=== PATIENT | female | born 1955 | race Caucasian/White ===

== ENCOUNTER 2019-11-02 06:16 | Inpatient (IN) ==
--- NOTE | 2019-10-18 13:43 | PAT Medication Instructions ---
Medication Instructions Date of Service October 18, 2019 Home Medications aspirin 325 mg PO QAM atorvastatin 10 mg PO QAM gabapentin 900 mg PO TID levothyroxine 75 mcg PO QAM metoprolol succinate 12.5 mg PO HS omeprazole 20 mg PO DAILY PRN paroxetine HCl [Paxil] 20 mg PO QAM ASK your prescriber and surgeon aspirin 325 mg PO QAM Take morning of surgery With a small sip of water, OTHERWISE NOTHING TO EAT OR DRINK AFTER MIDNIGHT: atorvastatin 10 mg PO QAM gabapentin 900 mg PO TID levothyroxine 75 mcg PO QAM omeprazole 20 mg PO DAILY PRN (if needed) paroxetine HCl [Paxil] 20 mg PO QAM Take evening before surgery gabapentin 900 mg PO TID metoprolol succinate 12.5 mg PO HS omeprazole 20 mg PO DAILY PRN (if needed) Other Notes If you have any questions please call us at [phone] or [phone] or [phone] or [phone]
--- NOTE | 2019-10-18 14:00 | Anesthesiology Consultation ---
Date of Service October 18, 2019 Assessment & Plan (1) Encounter for pre-operative examination: Chart Review Chart Review: Acceptable Risk for Surgery and Patient seen in Pre Admission Testing Teaching & Discussion Instructed NPO after midnight before surgery, except medications with 15 cc of water. Medication instructions provided according to the PAT guidelines. History Surgery Operation Date: 11/02/19 09:55 Proposed Procedures p C4-C5 Anterior Cervical Discectomy Fusion, C4-C7 Fusion, C6 Corpectomy, Spinal Cord Monitoring - Darrell Irvin DO Height/Weight Height: 4 ft 10 in Weight: 81.6 kg Allergies Allergy/AdvReac Type Severity Reaction Status Date / Time azithromycin Allergy Intermediate Hives Verified 10/18/19 13:33 diphenhydramine Allergy Intermediate Hives Verified 10/18/19 13:33 [From Benadryl] oxycodone AdvReac Mild N/V Verified 10/18/19 13:37 Medications Home Medications Medication Instructions Recorded Confirmed Last Taken aspirin 325 mg PO QAM 10/18/19 10/18/19 Unknown atorvastatin 10 mg PO QAM 10/18/19 10/18/19 Unknown gabapentin 900 mg PO TID 10/18/19 10/18/19 Unknown levothyroxine 75 mcg PO QAM 10/18/19 10/18/19 Unknown metoprolol succinate 12.5 mg PO HS 10/18/19 10/18/19 Unknown omeprazole 20 mg PO DAILY PRN 10/18/19 10/18/19 Unknown paroxetine HCl [Paxil] 20 mg PO QAM 10/18/19 10/18/19 Unknown Past Medical History Medical History Anemia Anxiety and depression Chronic kidney disease STAGE 3 Chronic obstructive pulmonary disease "MILD", uses rescue inhaler once or twice per year if has bronchitis GERD (gastroesophageal reflux disease) Hyperlipidemia Hypertension Hypothyroidism Nerve damage RT GROIN AREA Transient ischemic attack (TIA) 2008 (6 TOTAL EVENTS) SLURRED SPEECH AND LIGHT SENSITIVITY (NO CURRENT DEFECITS). NOW ON DAILY ASA 325. Exercise / Class Metabolic Activity II 4-5 Yardwork/Stairs/Walk up hill Past Family History Family History Other No significant family history Past Surgical History Surgical History History of cholecystectomy History of colonoscopy History of ERCP History of tonsillectomy History of tooth extraction Past Anesthesia History No Hx of Anesthesia Complications and No Family Hx of Anesthesia Complications History of PONV No Hx of PONV and No Hx of Motion Sickness STOP BANG Total 5 Social History Smoking Status: Never smoker Do You Dip or Chew Tobacco: No Hx Alcohol Use: No Hx Substance Use: No substance use type: does not use Review of Systems Pt denies any recent chest pain, shortness of breath, palpitations, cough, fever. +URI mid 09/2019, treated with steroid and ABX, now resolved. Physical Exam Vital Signs Last Vital Signs Temp 36.9 C 10/18/19 13:41 Pulse 68 10/18/19 13:41 Resp 16 10/18/19 13:41 BP 125/81 10/18/19 13:41 Pulse Ox 97 10/18/19 13:41 ENMT Mouth: + dentures (upper full denture); no chipped teeth and no loose teeth Thyromental Distance: < 3.5 Finger Breadths (3) Mallampati Class: II Neck + short neck and + limited neck extension (very limited) Respiratory normal respiratory effort Auscultation: lungs clear to auscultation bilaterally Cardiovascular Rate/Rhythm: regular rate and regular rhythm Heart Sounds: no murmur Vessels: no carotid bruit Extremities: no edema Testing Laboratory Results 10/18/19 14:06 PT 9.7 Seconds (9.0-12.0) 10/18/19 14:06 INR 0.9 (0.9-1.1) 10/18/19 14:06 APTT 24.5 Seconds (21.0-31.0) 10/18/19 14:06 Urine Color Dark Yellow 10/18/19 14:06 Urine Appearance Clear (Clear) 10/18/19 14:06 Urine pH 5.5 (4.5-7.5) 10/18/19 14:06 Ur Specific [place] 1.024 (1.000-1.030) 10/18/19 14:06 Urine Protein Negative (Negative) 10/18/19 14:06 Urine Glucose (UA) Negative (Negative) 10/18/19 14:06 Urine Ketones Negative (Negative) 10/18/19 14:06 Urine Nitrite Negative (Negative) 10/18/19 14:06 Ur Leukocyte Esterase 2+ (Negative) H 10/18/19 14:06 Urine WBC (Auto) >30 /hpf (0-5) H 10/18/19 14:06 Urine RBC (Auto) 0-4 /hpf (0-4) 10/18/19 14:06 U Hyaline Cast (Auto) 1-5 /lpf (0-5) 10/18/19 14:06 U Epithel Cells (Auto) >30 /lpf (0-5) H 10/18/19 14:06 Urine Bacteria (Auto) 1+ (Negative) H 10/18/19 14:06 Blood Type A Positive 10/18/19 14:06 Antibody Screen NEGATIVE 10/18/19 14:06 09/15/19 SODIUM: 140 POTASSIUM: 4.3 CHLORIDE: 107 CO2: 22 BUN: 8 CREATININE: 0.7 GLUCOSE: 91 *surgeon's office notified re: + UA (culture pending) Electrocardiogram Date: 09/12/19 Findings: + NSR @ (71) Possible left atrial enlargement. Chest X-Ray Date: 09/03/19 Findings: + NAD Echocardiogram Date: 09/27/16 EF: 63% Normal cardiac chamber sizes. LV systolic function is normal. RV systolic function is normal. Mild aortic valve sclerosis is present. The mitral and tricuspid valve anatomy are normal. The estimated PASP is 23 mmHg. No pericardial effusion is noted.
[2019-10-18 16:05] LABS: Basophils # (auto) 0.02 K/uL (0-0.2); Basophils % (auto) 0.3 %; Eosinophils # (auto) 0.18 K/uL (0-0.5); Eosinophils % (auto) 3.1 %; Hematocrit (blood only) 40.8 % (37-47); Hemoglobin 12.7 g/dL (12.0-16.0); Immature Granulocytes # (auto) 0.03 K/uL (0.00-0.02); Immature Granulocytes % (auto) 0.5 %; Lymphocytes # (auto) 1.72 K/uL (1.2-3.4); Lymphocytes % (auto) 29.4 %; Mean Corpuscular Hemoglobin 30.3 pg (25-34); Mean Corpuscular Hgb Conc 31.1 g/dL (32-36); Mean Corpuscular Volume 97.4 fL (80-100); Mean Platelet Volume 11.2 fL (7.4-10.4); Monocytes # (auto) 0.41 K/uL (0.11-0.59); Neutrophils % (auto) 59.7 %; Platelet Count 196 K/uL (130-400); RDW Coefficient of Variation 13.3 % (11.5-14.5); RDW Standard Deviation 47.1 fL (36.4-46.3); Red Blood Count 4.19 M/uL (4.2-5.4); White Blood Count 5.86 K/uL (4.8-10.8)
[2019-10-18 16:19] LABS: INR 0.9 (0.9-1.1); Partial Thromboplastin Ratio 0.9; Partial Thromboplastin Time 24.5 Seconds (21.0-31.0); Prothrombin Time 9.7 Seconds (9.0-12.0)
[2019-10-18 16:23] LABS: Appearance Urine Clear (Clear); Bacteria Urine Automated 1+ (Negative); Bilirubin Urine Negative (Negative); Blood Urine Negative (Negative); Color Urine Dark Yellow; Epithelial Cell Urine Auto >30 /lpf (0-5); Glucose Urine UA Negative (Negative); Ketones Urine Negative (Negative); Leukocyte Esterase Urine 2+ (Negative); Nitrite Urine Negative (Negative); Protein Urine Negative (Negative); RBC Urine Automated 0-4 /hpf (0-4); Specific Gravity Urine 1.024 (1.000-1.030); Urobilinogen Urine Negative (Negative); WBC Urine Automated >30 /hpf (0-5); pH Urine 5.5 (4.5-7.5)
[~2019-11-02 06:16] MED LIST: ACETAMINOPHEN 500 MG TAB PO SCH; CEFAZOLIN 2000MG 2,000 MG/15 ML SYR IV SCH; CeleBREX 200 MG CAP PO SCH; GABAPENTIN 600 MG DOSE PO SCH; LR 15ML/HR IV SCH
[2019-11-02] MEDS ORDERED: HYDROmorphone INJ 2 MG/ML SYR/VIAL ONE (07:03)
[2019-11-02] MEDS ORDERED: MIDAZOLAM HCL 1 MG/ML 2ML VIAL ONE (07:03)
[2019-11-02] MEDS ORDERED: fentaNYL citrate 100 MCG/2 ML VIAL ONE ×3 (07:03→08:58)
[2019-11-02] MEDS ORDERED: BACITRACIN INJ 50,000 UNIT VIAL ONE (07:04)
[2019-11-02] MEDS ORDERED: PROMETHAZINE HCL 12.5 MG in SODIUM CHLORIDE 0.9% 50 ML IV PRN ×2 (07:30→11:55)
[2019-11-02] MEDS ORDERED: fentaNYL citrate 100 MCG/2 ML VIAL IV PRN (07:30)
[2019-11-02] MEDS ORDERED: METOCLOPRAMIDE HCL INJ 5 MG/ML 2 ML VIAL IV PRN ×2 (07:30→11:55)
[2019-11-02] MEDS ORDERED: HYDROmorphone INJ 2 MG/ML SYR/VIAL IV PRN (07:30)
[2019-11-02] MEDS ORDERED: ONDANSETRON INJ 2 MG/ML 2 ML VIAL IV PRN ×2 (07:30→11:55)
[2019-11-02] MEDS ORDERED: ATROPINE SULFATE 0.1 MG/ML 10ML SYR IV PRN (07:30)
[2019-11-02] MEDS ORDERED: ePHEDrine sulfate 50 MG/ML AMP IV PRN (07:30)
--- NOTE | 2019-11-02 07:31 | History & Physical Bridge Note ---
Date of Service November 02, 2019 History & Physical Bridge Note I have examined the patient, reviewed the History & Physical and in the interval since the performance of the History & Physical I have noted the following changes of clinical significance: no changes noted
--- NOTE | 2019-11-02 07:32 | History & Physical Report ---
Date of Service November 02, 2019 Assessment & Plan (1) Myelopathy concurrent with and due to spinal stenosis of cervical region: Anterior cervical discectomy and fusion C4-5 fusion C4-C7 corpectomy C6 Present on Admission?: Yes History of Present Illness Chief Complaint: Neck and arm pain Primary Care Provider: Jessica Laughlin This is a 64-year-old female with chronic persistent neck and arm symptoms. After failing extensive course of nonoperative care is here for surgical intervention. Allergies Allergy/AdvReac Type Severity Reaction Status Date / Time azithromycin Allergy Intermediate Hives Verified 11/02/19 06:37 diphenhydramine Allergy Intermediate Hives Verified 11/02/19 06:37 [From Benadryl] oxycodone AdvReac Mild N/V Verified 11/02/19 06:37 propoxyphene AdvReac Mild Nausea Verified 11/02/19 06:38 Home Medications Home Medications Medication Instructions Recorded Confirmed Type aspirin 325 mg PO QAM 10/18/19 11/02/19 History atorvastatin 10 mg PO QAM 10/18/19 11/02/19 History gabapentin 900 mg PO TID 10/18/19 11/02/19 History levothyroxine 75 mcg PO QAM 10/18/19 11/02/19 History metoprolol succinate 12.5 mg PO HS 10/18/19 11/02/19 History omeprazole 20 mg PO DAILY PRN 10/18/19 11/02/19 History paroxetine HCl [Paxil] 20 mg PO QAM 10/18/19 11/02/19 History Past Med/Surg History Medical History Anemia Anxiety and depression Chronic kidney disease STAGE 3 Chronic obstructive pulmonary disease "MILD", uses rescue inhaler once or twice per year if has bronchitis GERD (gastroesophageal reflux disease) Hyperlipidemia Hypertension Hypothyroidism Nerve damage RT GROIN AREA Transient ischemic attack (TIA) 2008 (6 TOTAL EVENTS) SLURRED SPEECH AND LIGHT SENSITIVITY (NO CURRENT DEFECITS). NOW ON DAILY ASA 325. Surgical History History of cholecystectomy History of colonoscopy History of ERCP History of tonsillectomy History of tooth extraction Family History Other No significant family history Social History Preferred Language: Beninese Communication Ability: Effective Obstetrics Nurse Required: No Beliefs That Will Affect Care: None Current Living Situation: Family Current Living Situation Comment: DAUGHTER AND FAMILY LIVE WITH PATIENT Feels Safe at Home: Yes Safety Concerns: Feels Safe At This Time Smoking Status: Never smoker Do You Dip or Chew Tobacco: No ; Second Hand Exposure: Yes ; Tobacco Cessation Education Requested by Patient: No Hx Alcohol Use: No Hx Substance Use: No Physical Exam Physical Exam: Patient alert and oriented neurologically intact Results & Data Vital Signs (Past 12 Hours) Vital Signs Temp Pulse Resp BP Pulse Ox 11/02/19 06:41 36.8 C 66 18 133/77 97
[2019-11-02] MEDS ORDERED: FLOSEAL HEMOSTATIC MATRIX 10ML TOP ONE (08:39)
[2019-11-02] MEDS ORDERED: ACETAMINOPHEN 1000 MG/100 ML IV IV ONE (08:42)
[2019-11-02] MEDS ORDERED: GLYCOPYRROLATE 0.2 MG/ML VIAL ONE (09:03)
[2019-11-02] MEDS ORDERED: DEXAMETHASONE SOD INJ 4 MG/ML VIAL ONE (09:03)
[2019-11-02] MEDS ORDERED: PHENYLEPHRINE 100MCG/ML 5ML SYR ONE (09:03)
[2019-11-02] MEDS ORDERED: NEOSTIGMINE METHYLSULFATE 1 MG/ML 10ML VIAL ONE (09:03)
[2019-11-02] MEDS ORDERED: PROPOFOL IV EMULSION 10 MG/ML 20 ML VIAL IV ONE (09:03)
[2019-11-02] MEDS ORDERED: ROCURONIUM BROMIDE 10 MG/ML 5 ML VIAL ONE (09:03)
[2019-11-02] MEDS ORDERED: ONDANSETRON INJ 2 MG/ML 2 ML VIAL ONE (09:03)
[2019-11-02] MEDS ORDERED: LIDOCAINE HCL 2% 2 ML VIAL/AMP(20MG/ML) INFIL ONE (09:03)
[2019-11-02] MEDS ORDERED: ePHEDrine sulfate 50 MG/ML SYR ONE (09:03)
--- NOTE | 2019-11-02 09:54 | Operative Report ---
Post Operative Report Pre & Post Diagnosis Operation Date: 11/02/19 07:45 Pre-Op Diagnosis: Cervical spinal stenosis with myeloradiculopathy Post-Op Diagnosis: Same I identified the patient and participated in the time-out.: Yes Procedure Operation Date: 11/02/19 07:45 Actual Procedures #1 anterior cervical corpectomy C6 with bilateral foraminotomies. #2 anterior cervical arthrodesis with bilateral foraminotomies C4-5 per #3 cervical arthrodesis C4-C5 and C5-C7. #4 placement of 6 mm peek at C4-5 and 21 mm peek cage at C5 to see 7 both filled with locally harvested morselized autograft and DBM. #5 application of gonzalez plate and screws from C5-C7. Surgeon Darrell Irvin, DO Bottom Presser Julian Roberts Estimated Blood Loss 25 Findings See Below Patient is forefoot 10 inches tall weighing over 80 kg with a BMI in excess of 37. The patient's body habitus did create increased technical difficulty adding at least 40% increase in operative time. Specimens None Indications This is a 64-year-old female presents with above-mentioned diagnosis after failing extensive course of nonoperative care is here for surgical intervention. Description of Procedure Patient was met with identified informed consent obtained. Patient was then taken to the operative suite underwent ablation placed in a supine position the Iraj table head Cool head of operation and logistics. All bony prominences well-padded eyes inspected to ensure no external pressure was prompt at this point the anterior cervical spine was prepped and draped in a sterile fashion. The assistance of fluoroscopy identified the see 6 vertebral body and a transverse incision was placed along the right anterior aspect of the cervical spine. Sharp dissection with the assistance of bipolar electrocautery was performed down to and exposing the anterior cervical spine from C4-C7. Self-retaining retractors placed. I then performed a complete discectomy of C5-6 out to the uncovertebral joints bilaterally followed by C6-7. [place] distracting pins were then placed in C5 and C7 to distract across the C6 vertebral body. A complete corpectomy was then performed including removal of all posterior annular fibers longitudinally bilateral foraminotomies performed. Endplates were then burred to subcortical bleeding bone and a 21 mm peek cage filled with locally harvested morselized autograft and DBM tapped in position. Distracting apparatus was removed and I proceeded to C4-5. Again complete discectomy performed out to the uncovertebral joints bilaterally. Bilateral foraminotomies performed. Endplates were then burred to subcortical bleeding bone and a 6 mm peek cage filled with locally harvested morselized autograft and DBM tapped in position. Distraction apparatus was removed all anterior osteophytes burred to a smooth cortical surface and a gonzalez plate and screws applied with the assistance of fluoroscopy. The incision was then copiously irrigated explored to ensure no damage to surrounding structures remaining bleeding. 10 round NEWTON drain inserted. Incision was then closed with 2 Vicryl in a fashion of 4 Monocryl for final closure. Steri-Strip sterile dressing placed. Patient will continue to PACU stable disc. Please note Julian Roberts was present at the entire procedure involved the patient positioning complex portions of the surgery and final skin closure. Lastly spinal cord monitoring was utilized that the procedure no changes noted. I attest to the content of the Intraoperative Record and any orders documented therein. Any exceptions are noted below.
--- NOTE | 2019-11-02 10:34 | Fluoroscopy Report ---
FL cervical 2-3V CLINICAL HISTORY: C4-C5 ANTERIOR CERVICAL DISCECTOMY FUSION, C4-C7 FUSION COMPARISON STUDY: None. FLUOROSCOPY TIME: 15 second. FINDINGS: 3 fluoroscopic spot images of the cervical spine demonstrate anterior cervical discectomy a nd fusion from C4 through C7 with a C6 corpectomy and bone graft. The hardware appears intact. IMPRESSION: Fluoroscopy provided for C4-C7 ACDF. ACT 112: Negative or not required by law. Electronically signed by: Homar Swanson M.D. 11/02/2019 10:33 AM
--- NOTE | 2019-11-02 10:58 | Anesthesiology Progress Note ---
Date of Service November 02, 2019 Anesthesia Post Procedure Vital Signs Vital Signs: Temp Pulse Pulse Resp BP BP Pulse Ox 11/02/19 10:55 73 14 120/78 100 11/02/19 10:45 75 10 L 142/85 H 98 11/02/19 10:35 68 11 L 140/74 98 11/02/19 10:25 71 13 136/79 99 11/02/19 10:18 36.2 C L 74 12 136/94 96 11/02/19 06:41 36.8 C 66 18 133/77 97 Pain Intensity Right Anterior Neck: Pain Intensity: 0 Transfer of Care Handoff Completed per policy Notes Mental Status: alert / awake / arousable and participated in evaluation Patient Amnestic to Procedure: Yes Nausea / Vomiting: adequately controlled Pain: adequately controlled Airway Patency, RR, SpO2: stable & adequate BP & HR: stable & adequate Hydration State: stable & adequate Anesthetic Complications: no major complications apparent
[2019-11-02] MEDS ORDERED: NALOXONE HCL 0.4 MG/1 ML VIAL/CARP IV PRN (11:55)
[2019-11-02] MEDS ORDERED: PANTOprazole 40 MG TAB PO PRN (11:55)
[2019-11-02] MEDS ORDERED: DO NOT ADMINISTER PNEUMOCOCCAL VACCINE PRN (11:55)
[2019-11-02] MEDS ORDERED: RACEPINEPHRINE 2.25% NEBU SOLN 0.5 ML VIAL INH PRN (11:55)
[2019-11-02] MEDS ORDERED: HYDROmorphone INJ 0.5 MG/0.5 ML SYR IV PRN (11:55)
[2019-11-02] MEDS ORDERED: DO NOT ADMINISTER FLU VACCINE PRN (11:55)
[2019-11-02] MEDS ORDERED: DEXAMETHASONE SOD PHOSPHATE 8 MG in SYRINGE 0 ML IV PRN (11:55)
[2019-11-02] MEDS ORDERED: SOD PHOSPHATE/SOD BIPHOSPHATE ENEMA 132 ML BTL PR PRN (11:55)
[2019-11-02] MEDS ORDERED: MAGNESIUM HYDROXIDE SUSP 30 ML UDC PO PRN (11:55)
[2019-11-02] MEDS ORDERED: ONDANSETRON 4 MG OD TAB PO PRN (11:55)
[2019-11-02] MEDS ORDERED: FAMOTIDINE 20 MG TAB PO PRN (11:55)
[2019-11-02] MEDS ORDERED: HYDROCODONE/ACETAMOPHEN 5/325MG TAB PO PRN (11:55)
[2019-11-02] MEDS ORDERED: LORazepam 0.5 MG TAB PO PRN (11:55)
[2019-11-02] MEDS ORDERED: ALUMINUM/MAGNESIUM SUSP 30 ML UDC PO PRN (11:55)
[2019-11-02] MEDS ORDERED: LORazepam 0.5 MG/1 ML VIAL IV PRN (11:55)
[2019-11-02] MEDS ORDERED: TRAMADOL HCL 50 MG TABLET PO PRN (11:55)
[2019-11-02 13:19] LABS: Creatinine Clr Calc Pharmacy 49.1 ml/min; Est GFR (African American) 65.5; Est GFR (Non-African American) 56.5
--- NOTE | 2019-11-02 13:35 | Consultation ---
Date of Consultation November 02, 2019 Assessment & Plan (1) S/P cervical spinal fusion: Post op day# 0 S/P anterior cervical discectomy and fusion by Dr Irvin EBL #25ml -pain management per ortho -wound management per ortho -PT/OT as appropriate -DVT prophylaxis per ortho -incentive spirometry -monitor H&H for acute blood loss anemia; pre-op Hgb12.7 (2) Transient ischemic attack (TIA): H/O TIA in 2008 -Continue aspirin (3) Hypertension: Stable -Continue metoprolol, atorvastatin (4) Hyperlipidemia: -Continue atorvastatin (5) COPD (chronic obstructive pulmonary disease): No acute exacerbation -Albuterol prn (6) Anxiety and depression: -Continue paroxetine (7) Hypothyroidism: -Continue levothyroxine DVT Prophylaxis -SCDs per ortho Disposition per primary Follows with Jessica Laughlin PA-C for routine care Pt was seen and care coordinated with Dr Fournier. See addendum Pt will be followed by Dr Austin starting 11/03/19. Thank you for this consultation. We will follow the patient with you during their hospital stay. You can reach a [facility] via pager @ [phone]. Supervising Physician Co-Signing Physician Notes Pt was seen and examined. Agreed with Sofia PEDERSEN exam, assessment and plan. 64 y/o F with PMH HTN, HLD, TIA, COPD, hypothyroidism, anxiety, depression, obesity, s/p anterior cervical discectomy and fusion today by Dr Irvin after failing outpatient conservative/non surgical management. No post op complications. Denies any chest pain, palpitation, dizziness and SOB. Currently denies any pain. Fall precaution. PT/OT eval. Monitor H/H. Will continue monitor closely. MD Irlanda History of Present Illness Reason for Consultation: Post op medical management Attending Physician: Darrell Irvin DO History of Present Illness Pt is 64 y/o F with PMH HTN, HLD, TIA, COPD, hypothyroidism, anxiety, depression, obesity seen in medical consultation s/p anterior cervical discectomy and fusion today by Dr Irvin. Post op pt reports doing well. Denies any pain currently. Denies nausea/vomiting, or dysphagia. Was able to eat lunch without difficulty. Denies extremity paresthesias, pain or weakness. Denies fever/chills, diaphoresis, NORRIS, dizziness, syncope, vision changes, CP, SOB, orthopnea, palpitations, cough, sore throat, choking, otalgia, rhinorrhea, abdominal pain, extremity edema, rashes, urinary symptoms. Allergies Allergy/AdvReac Type Severity Reaction Status Date / Time azithromycin Allergy Intermediate Hives Verified 11/02/19 06:37 diphenhydramine Allergy Intermediate Hives Verified 11/02/19 06:37 [From Benadryl] oxycodone AdvReac Mild N/V Verified 11/02/19 06:37 propoxyphene AdvReac Mild Nausea Verified 11/02/19 06:38 Home Medications Home Medications Medication Instructions Recorded Confirmed Type aspirin 325 mg PO QAM 10/18/19 11/02/19 History atorvastatin 10 mg PO QAM 10/18/19 11/02/19 History gabapentin 600 mg PO TID 10/18/19 11/02/19 History levothyroxine 75 mcg PO QAM 10/18/19 11/02/19 History metoprolol succinate 12.5 mg PO HS 10/18/19 11/02/19 History omeprazole 20 mg PO DAILY PRN 10/18/19 11/02/19 History paroxetine HCl [Paxil] 20 mg PO QAM 10/18/19 11/02/19 History Patient History Medical History (Updated 11/02/19 @ 13:46 by Sofia Reese PA-C) Anemia Anxiety and depression Chronic kidney disease STAGE 3 Chronic obstructive pulmonary disease "MILD", uses rescue inhaler once or twice per year if has bronchitis COPD (chronic obstructive pulmonary disease) GERD (gastroesophageal reflux disease) Hyperlipidemia Hypertension Hypothyroidism Nerve damage RT GROIN AREA Transient ischemic attack (TIA) 2008 (6 TOTAL EVENTS) SLURRED SPEECH AND LIGHT SENSITIVITY (NO CURRENT DEFECITS). NOW ON DAILY ASA 325. Surgical History (Updated 11/02/19 @ 13:42 by Sofia Reese PA-C) History of cholecystectomy History of colonoscopy History of ERCP History of tonsillectomy History of tooth extraction S/P cervical spinal fusion Family History Other Cancer Hypertension Social History Preferred Language: Syrian Communication Ability: Effective Relations Liaison Required: No Beliefs That Will Affect Care: None Current Living Situation: Family Current Living Situation Comment: DAUGHTER AND FAMILY LIVE WITH PATIENT Feels Safe at Home: Yes Safety Concerns: Feels Safe At This Time Smoking Status: Never smoker Do You Dip or Chew Tobacco: No ; Second Hand Exposure: Yes ; Tobacco Cessation Education Requested by Patient: No Hx Alcohol Use: No Hx Substance Use: No Review of Systems Review of Systems: All systems reviewed & are unremarkable except as noted in HPI & below Physical Exam Physical Exam: General: no distress, obese Head: normocephalic, atraumatic Eyes: PERRL, EOM's intact, conjunctiva non-injected, anicteric ENT: normal inspection external ears, nose, mucous membranes moist Neck: supple, trachea midline, +c collar in place, +surgical dressing to anterior neck is dry and intact, +NEWTON drain in place with serosanguineous drainage Lungs: clear, no respiratory distress, no wheezing/rhonchi/rales CV: RRR, no pretibial edema Abd: normal BS, soft, non-tender Ext: BUE with sensation to light touch intact, decatizer strength equal and strong bilaterally; no cyanosis, BLE: no calf tenderness, distal pulses intact, sensation to light touch intact, pedal pushes and pulls intact Neuro: A&O x 3, no focal deficits noted, normal affect Skin: warm, dry Results & Data Vital Signs (Past 12 Hours) Vital Signs Temp Pulse Pulse Pulse Resp BP BP 11/02/19 13:14 71 16 11/02/19 12:34 37 C 66 15 116/76 11/02/19 12:11 37.1 C 67 15 103/68 11/02/19 11:35 36.8 C 72 15 129/79 11/02/19 11:25 36.7 C 67 12 130/80 11/02/19 11:15 70 12 142/82 H 11/02/19 11:05 76 15 139/85 11/02/19 10:55 73 14 120/78 11/02/19 10:45 75 10 L 142/85 H 11/02/19 10:35 68 11 L 140/74 11/02/19 10:25 71 13 136/79 11/02/19 10:18 36.2 C L 74 12 136/94 12/20/19 06:41 36.8 C 66 18 133/77 Pulse Ox 11/02/19 13:14 93 11/02/19 12:34 96 11/02/19 12:11 97 11/02/19 11:35 96 11/02/19 11:25 97 11/02/19 11:15 99 11/02/19 11:05 100 11/02/19 10:55 100 11/02/19 10:45 98 11/02/19 10:35 98 11/02/19 10:25 99 11/02/19 10:18 96 11/02/19 06:41 97 Laboratory Results BMP 11/02/19 12:41 Creatinine 1.05
[2019-11-02] MEDS ORDERED: ALBUTEROL 0.083% NEBU SOLN 3 ML VIAL NEB PRN (13:42)
[2019-11-02] MEDS: GABAPENTIN 300 MG CAP PO SCH ×2 (13:54→20:41)
[2019-11-02] MEDS: SODIUM CHLORIDE 0.9% 1000ML 1,000 ML IV SCH ×2 (13:58→23:43)
[2019-11-02] MEDS ORDERED: ACETAMINOPHEN 500 MG TAB PO PRN (14:00)
[2019-11-02] MEDS ORDERED: ACETAMINOPHEN 1,000 MG/100 ML VIAL IV PRN (14:00)
[2019-11-02] MEDS ORDERED: GABAPENTIN 300 MG CAP PO SCH (14:00)
[2019-11-02] MEDS: CEFAZOLIN 2000MG 2,000 MG/15 ML SYR IV SCH ×2 (16:53→23:44)
[2019-11-02] MEDS ORDERED: METOPROLOL SUCC 25MG EXT REL TAB PO SCH (21:00)
[2019-11-02] MEDS ORDERED: DOCUSATE SODIUM/SENNA 50/8.6MG TAB PO SCH (21:00)
[2019-11-03] MEDS ORDERED: LEVOTHYROXINE SODIUM 75 MCG TABLET PO SCH (06:30)
[2019-11-03] MEDS: GABAPENTIN 300 MG CAP PO SCH (08:44)
[2019-11-03] MEDS ORDERED: ASPIRIN 325 MG ECTAB PO SCH (09:00)
[2019-11-03] MEDS ORDERED: ATORVASTATIN 10 MG TAB PO SCH (09:00)
[2019-11-03] MEDS ORDERED: PARoxetine HCl 20 MG TAB PO SCH (09:00)
--- NOTE | 2019-11-03 09:37 | Discharge Summary ---
Date of Service November 03, 2019 Admission HPI Per Admitting Provider This is a 64-year-old female with chronic persistent neck and arm symptoms. After failing extensive course of nonoperative care is here for surgical intervention. Principal Diagnosis Cervical spinal stenosis with myelopathy radiculopathy Discharge Data Allergies Allergy/AdvReac Type Severity Reaction Status Date / Time azithromycin Allergy Intermediate Hives Verified 11/02/19 06:37 diphenhydramine Allergy Intermediate Hives Verified 11/02/19 06:37 [From Benadryl] oxycodone AdvReac Mild N/V Verified 11/02/19 06:37 propoxyphene AdvReac Mild Nausea Verified 11/02/19 06:38 Consultations 11/02/19 11:55 Consult Hospitalist Routine Procedures Performed Operation Date: 11/02/19 07:45 Actual Procedures p C4-C5 Anterior Cervical Discectomy Fusion, C4-C7 Fusion, C6 Corpectomy, Spinal Cord Monitoring(Not Applicable) - Darrell Irvin DO Ordered Studies 11/02/19 07:00 FL cervical 2-3V Routine FL fluoroscopy <1hr Routine Hospital Course (1) Myelopathy concurrent with and due to spinal stenosis of cervical region: Patient underwent anterior cervical decompression fusion tolerated well second orthopedic for postoperative postop day 1 she was swallowing well good st rength testing symptoms markedly improved [place] drain decreased appropriately subsequently discharged home. Discharge orders instructions from the chart for further review. Total Time Total Time Spent Total Time Spent (In Minutes): 20 minutes Discharge Plan Discharge Items Patient Disposition: Home - Self-Care Reason For Visit: Spinal Stenosis, Cervical Region Discharge Diagnosis: Cervical spinal stenosis with myelopathy Activity: As commented below Non-emergency contact: Primary Care Provider Call non-emergency contact if: you have any medication questions Follow-up/Referrals: Jessica Laughlin PA-C [Primary Care Provider] - Diet: Regular Addtl Attending Provider Instructions: ACTIVITY RECOMMENDATIONS: SELF CARE INSTRUCTIONS AFTER CERVICAL FUSIONS 1. No smoking. Smoking drastically decreases the chance of a solid fusion. 2. No bending, lifting more than 5 pounds, or twisting (roll like a log when turning in bed). 3. You may shower 3 days after surgery. Thoroughly dry wound. Do not soak in the tub. 4. Cervical collar: Must be worn at all times including sleeping. You may remove the brace only to bath, eat and if you are sitting in a recliner. 5. Please walk as much as you can for exercise. Gradually increase the distance that you walk as your endurance increases. SPECIAL CARE INSTRUCTIONS: VERY IMPORTANT TO READ AND REVIEW A. Do not take any anti-inflammatory medications (i.e. Indocin, Advil, Aspirin, Naprosyn, Aleve, Motrin, etc.) as these may inhibit the chance of a solid fusion. Tylenol is okay to take. B. Your surgical incision has been closed with a cosmetic suture under the skin that will dissolve in about 6 weeks. In 14 days, you can use a pair of clean scissors and cut the suture that is left outside of the skin at the ends of your incision. C. Complications are uncommon, but please contact us if you have any signs or symptoms of: 1. wound infection (fever higher than 102.5 degrees F, redness, separation of wound, drainage, or increasing pain from the incision) 2. blood clots in legs (pain, swelling, redness and warmth in legs) 3. urinary tract infection (fever higher than 102.5 degrees, burning upon urination or increased frequency of urination) 4. nerve problems (inability to walk on your toes or heels, numbness, loss of bowel or bladder control) 5. any other symptoms that concern you. D. Please call the office at if you have any concerns or questions about your operation or recovery. MANAGING PAIN AFTER SPINAL SURGERY 1. Narcotic medication is intended for short-term use and will be provided for surgical pain. Surgical pain usually lasts for a period of 4-6 weeks. Narcotic medication includes Percocet, Vicodin, Darvocet, Tylenol #3 or Lortab. 2. Longer-term pain is more appropriately treated with non-narcotic medication such as Tylenol ES. 3. Muscle spasm is not appropriately treated with narcotics. Muscle relaxers such as Soma, Flexeril or Skelaxin can be used along with Tylenol ES. 4. Remember that we all live with some "aches and pains". This is not unusual or uncommon after an injury or as we get older. 5. We will provide appropriate medication within the normal guidelines of their prescribed use. We will also be very cautious and aware of potential abuse and extended duration of patients' medication needs. 6. Please allow 2-3 days to process refills. Prescriptions will not be mailed but must be picked up at the office. FOLLOW UP VISIT: Keep your scheduled follow-up appointment. Any questions, please call the office at . Pending Studies at Discharge: No Stand-Alone Forms: My [facility], Smoking Cessation Medications and DC Order Prescriptions: New tramadol 50 mg tablet 50 mg PO Q6H PRN (Reason: pain, moderate) Qty: 30 RF: 0 Continued atorvastatin 10 mg Tablet 10 mg PO QAM RF: 0 aspirin 325 mg Tablet 325 mg PO QAM RF: 0 levothyroxine 75 mcg Tablet 75 mcg PO QAM RF: 0 paroxetine HCl [Paxil] 20 mg Tablet 20 mg PO QAM RF: 0 gabapentin 300 mg Capsule 600 mg PO TID RF: 0 omeprazole 20 mg Capsule,Delayed Release(Dr/Ec) 20 mg PO DAILY PRN (Reason: Indigestion) RF: 0 metoprolol succinate 25 mg Tablet Extended Release 24 Hr 12.5 mg PO HS RF: 0 Discharge Orders: Discharge Order (Routine); Ordered 11/03/19 Ordered By: Darrell Irvin Admission Data Admit Date/Time: 11/02/19 11:36 Attending Provider: Darrell Irvin Admit Provider: Darrell Irvin Primary Care Provider: Jessica Laughlin Other Providers: Renae Austin
[2019-11-03] MEDS ORDERED: POLYETHYLENE (MIRALAX) 17 GM PACK PO SCH (09:55)
--- NOTE | 2019-11-03 16:16 | Anesthesiology Progress Note ---
Date of Service November 03, 2019 Anesthesia Post Procedure Vital Signs Vital Signs: Temp Pulse Pulse Resp BP BP Pulse Ox 11/03/19 11:30 65 16 93 11/03/19 10:44 36.7 C 75 16 148/77 H 98 11/03/19 09:41 36.7 C 71 60 16 154/86 H 100 11/03/19 08:43 36.7 C 60 16 168/95 H 100 11/03/19 07:11 67 18 100 11/03/19 06:45 36.6 C 72 16 165/83 H 100 11/03/19 04:50 36.4 C L 73 18 166/89 H 100 11/03/19 03:44 78 14 99 11/03/19 02:58 36.7 C 83 18 169/93 H 100 11/03/19 01:25 161/91 H 11/03/19 00:45 69 18 174/95 H 99 11/02/19 23:55 84 16 99 11/02/19 23:15 154/86 H 11/02/19 22:53 36.6 C 69 16 172/95 H 100 11/02/19 20:41 36.7 C 79 18 153/91 H 99 11/02/19 19:56 89 18 98 11/02/19 18:30 36.7 C 90 18 151/83 H 97 11/02/19 16:45 36.7 C 82 16 149/89 H 97 Pulse Ox 11/03/19 11:30 11/03/19 10:44 11/03/19 09:41 11/03/19 08:43 11/03/19 07:11 11/03/19 06:45 11/03/19 04:50 11/03/19 03:44 11/03/19 02:58 11/03/19 01:25 11/03/19 00:45 11/02/19 23:55 11/02/19 23:15 11/02/19 22:53 11/02/19 20:41 11/02/19 19:56 11/02/19 18:30 11/02/19 16:45 97 Pain Intensity Right Anterior Neck: Pain Intensity: 0 Transfer of Care Handoff Completed per policy Notes Mental Status: alert / awake / arousable and participated in evaluation Patient Amnestic to Procedure: Yes Nausea / Vomiting: adequately controlled Pain: adequately controlled Airway Patency, RR, SpO2: stable & adequate BP & HR: stable & adequate Hydration State: stable & adequate Anesthetic Complications: no major complications apparent
[2019-11-04] MEDS ORDERED: bisacodyL 10 MG SUPP PR PRN (09:55)
== END 2019-11-03 13:36 | disposition home or self-care (01) | DRG 472 ==
LOC: ASU 06:16 → 3E 11:36